=== PATIENT | female | born 1970 | race Two or more races ===

== ENCOUNTER 2016-07-23 10:42 | Inpatient (IN) | payer MEDICAID ==
[~2016-07-23] VITALS: Ht 170.2 cm; Wt 102.5 kg
[2016-07-23] MEDS ORDERED: SODIUM CHLORIDE 0.9% 1,000 ML IV ONE (11:18)
[2016-07-23] MEDS ORDERED: TRAZ100T15 PO (11:30)
[2016-07-23] MEDS ORDERED: LAMO100T5 PO (11:30)
[2016-07-23] MEDS ORDERED: SODIUM CHLORIDE 0.9% 1,000ML IVBOLUS ONE (11:30)
[2016-07-23] MEDS ORDERED: FLUO20CA19 PO (11:30)
[2016-07-23] MEDS ORDERED: ONDANSETRON 2MG/ML, 2ML IVPush ONE (11:30)
[2016-07-23 11:44] LABS: HEMOGLOBIN 12.7 g/dL (11.7-16.4)
[2016-07-23] MEDS ORDERED: HYDROmorphone 1 MG/ML, 1ML ONE ×2 (11:47→12:44)
[2016-07-23] MEDS ORDERED: ONDANSETRON 2MG/ML, 2ML ONE (11:47)
[2016-07-23 11:51] LABS: ASPARTATE AMINO TRANSFERASE 10 U/L (15-37); BLOOD UREA NITROGEN 19 mg/dL (7-18)
[2016-07-23] MEDS: HYDROmorphone 1 MG/ML, 1ML IVPush PRN ×2 (11:52→12:50)
[2016-07-23] MEDS ORDERED: OMNIPAQUE 350 MG/ML, 150 ML BOTTLE ONE (12:16)
[2016-07-23] MEDS ORDERED: SODIUM CHLORIDE FLUSH 10ML SYR IVF ONE (12:30)
[2016-07-23] MEDS ORDERED: ONDANSETRON 2MG/ML, 2ML IVP PRN (14:30)
[2016-07-23] MEDS ORDERED: ONDANSETRON ODT 4 MG PO PRN (14:30)
[2016-07-23] MEDS ORDERED: ACETAMINOPHEN 325 MG TABLET PO PRN (14:30)
[2016-07-23] MEDS: FLUOXETINE 20 MG CAPSULE PO SCH ×2 (16:00→21:00)
[2016-07-23 16:15] VITALS: BP 90/58
[2016-07-23] MEDS: ENOXAPARIN 40 MG/0.4 ML SQ SCH (16:19)
[2016-07-23] MEDS: POTASSIUM CHLORIDE 10 MEQ in SODIUM CHLORIDE 0.9% 1,000 ML IV SCH (16:19)
[2016-07-23] MEDS: MORPHINE SULFATE 4 MG/ML, 1ML IVPush PRN (16:20)
[2016-07-23 17:37] VITALS: BP 111/75
[2016-07-23] MEDS: HYDROcodone/APAP 5/325 TABLET PO PRN (18:17)
[2016-07-23 19:42] VITALS: BP 96/64
[2016-07-23] MEDS: TRAZODONE 100MG TABLET PO SCH (21:22)
[2016-07-23] MEDS ORDERED: MORPHINE SULFATE 4 MG/ML, 1ML IVPush ONE (21:30)
[2016-07-24 01:40] VITALS: BP 94/61
[2016-07-24] MEDS: MORPHINE SULFATE 4 MG/ML, 1ML IVPush PRN ×3 (04:30→20:32)
[2016-07-24 05:22] LABS: HEMOGLOBIN 11.6 g/dL (11.7-16.4)
[2016-07-24 05:29] LABS: BLOOD UREA NITROGEN 13 mg/dL (7-18)
[2016-07-24] MEDS: POTASSIUM CHLORIDE 10 MEQ in SODIUM CHLORIDE 0.9% 1,000 ML IV SCH ×2 (05:36→20:32)
[2016-07-24 07:29] VITALS: BP 101/67
[2016-07-24] MEDS: HYDROcodone/APAP 5/325 TABLET PO PRN (07:54)
[2016-07-24] MEDS: DICYCLOMINE 10 MG CAPSULE PO PRN ×2 (08:41→18:11)
[2016-07-24] MEDS: FLUOXETINE 20 MG CAPSULE PO SCH ×3 (09:36→21:00)
[2016-07-24] MEDS: LAMOTRIGINE 100 MG TABLET PO SCH (09:37)
[2016-07-24] MEDS ORDERED: LORazepam 2 MG/ML, 1ML IVPush ONE (10:00)
[2016-07-24] MEDS ORDERED: MAALOX/HYOSCYAMINE/LIDOCAINE 45 ML BOTTLE PO PRN (10:00)
[2016-07-24] MEDS: DOCUSATE 100 MG CAPSULE PO PRN (13:23)
[2016-07-24 14:16] VITALS: BP 96/61
[2016-07-24] MEDS: ENOXAPARIN 40 MG/0.4 ML SQ SCH (17:12)
[2016-07-24 20:04] VITALS: BP 113/76
[2016-07-24] MEDS: TRAZODONE 100MG TABLET PO SCH (20:32)
[2016-07-25 01:17] VITALS: BP 95/66
[2016-07-25 05:59] LABS: HEMOGLOBIN 11.5 g/dL (11.7-16.4)
[2016-07-25] MEDS: MORPHINE SULFATE 4 MG/ML, 1ML IVPush PRN (06:15)
[2016-07-25] MEDS: DOCUSATE 100 MG CAPSULE PO PRN (06:15)
[2016-07-25 07:47] VITALS: BP 108/71
[2016-07-25] MEDS: POTASSIUM CHLORIDE 10 MEQ in SODIUM CHLORIDE 0.9% 1,000 ML IV SCH (08:48)
[2016-07-25] MEDS: LAMOTRIGINE 100 MG TABLET PO SCH (09:11)
[2016-07-25] MEDS: FLUOXETINE 20 MG CAPSULE PO SCH ×2 (09:11→15:11)
[2016-07-25] MEDS: DICYCLOMINE 10 MG CAPSULE PO PRN ×2 (09:12→15:10)
[2016-07-25] MEDS ORDERED: DICY10CA53 PO (11:58)
[2016-07-25] MEDS: ENOXAPARIN 40 MG/0.4 ML SQ SCH (12:13)
[2016-07-25 13:02] VITALS: BP 95/60
== END 2016-07-25 17:25 | disposition home or self-care (01) | DRG 392 ==
LOC: ED 12:23 → EDIP 13:23 → 4EST 15:32
PROC: 0T9B70Z Drainage of Bladder with Drainage Device, Via Natural or Artificial Opening (ICD-10-PCS; principal; 2016-07-23)
DX: A08.4 Viral intestinal infection, unspecified (principal); Z90.710 Acquired absence of both cervix and uterus; F31.9 Bipolar disorder, unspecified; N18.2 Chronic kidney disease, stage 2 (mild); Z82.49 Family history of ischemic heart disease and other diseases of the circulatory system; Z83.3 Family history of diabetes mellitus; Z80.1 Family history of malignant neoplasm of trachea, bronchus and lung; Z88.0 Allergy status to penicillin; Z88.2 Allergy status to sulfonamides; Z79.899 Other long term (current) drug therapy
CPT/HCPCS: 36415; 74177; 80048; 80053; 81003; 83690; 84703; 85025; 93005; 96361; 96374; 96375; J1170; J1650; J2405; J3480; Q0162; Q9967; J2060; J7030

== ENCOUNTER 2016-09-28 21:56 | Emergency (ER) | payer MEDICAID ==
[~2016-09-28] VITALS: Ht 170.2 cm; Wt 98.8 kg
[~2016-09-28 21:56] MED LIST: DICY10CA53 PO; FLUO20CA19 PO; LAMO100T5 PO; TRAZ100T15 PO
[2016-09-28 22:02] VITALS: BP 149/95
[2016-09-29] MEDS ORDERED: ONDANSETRON ODT 4 MG ONE (00:54)
[2016-09-29] MEDS ORDERED: HYDROcodone/APAP 5/325 TABLET ONE (00:54)
== END 2016-09-29 10:08 | disposition home or self-care (01) ==
LOC: ED 09-29 02:45
DX: S16.1XXA Strain of muscle, fascia and tendon at neck level, initial encounter (principal); M50.30 Other cervical disc degeneration, unspecified cervical region; X58.XXXA Exposure to other specified factors, initial encounter; Y93.89 Activity, other specified; Y99.8 Other external cause status; Y92.89 Other specified places as the place of occurrence of the external cause
CPT/HCPCS: 72125

== ENCOUNTER 2016-10-16 08:57 | Emergency (ER) | payer MEDICAID ==
[~2016-10-16] VITALS: Ht 170.2 cm; Wt 97.0 kg
[2016-10-16] MEDS ORDERED: LISD50CA2 PO (09:22)
[2016-10-16] MEDS ORDERED: DIAZEPAM 5 MG TABLET ONE (09:55)
[2016-10-16] MEDS ORDERED: DIAZEPAM 5 MG TABLET PO ONE (10:00)
[2016-10-16] MEDS ORDERED: IBUPROFEN 200 MG TABLET PO ONE (10:00)
[2016-10-16] MEDS ORDERED: HYDROcodone/APAP 5/325 TABLET PO ONE (10:00)
[2016-10-16 10:47] VITALS: BP 118/92
== END 2016-10-16 10:50 | disposition home or self-care (01) ==
LOC: ED 09:12
DX: S16.1XXA Strain of muscle, fascia and tendon at neck level, initial encounter (principal); M32.9 Systemic lupus erythematosus, unspecified; X50.9XXA Other and unspecified overexertion or strenuous movements or postures, initial encounter; Y93.89 Activity, other specified; Y92.89 Other specified places as the place of occurrence of the external cause; Y99.8 Other external cause status
CPT/HCPCS: 99284

== ENCOUNTER 2016-12-16 22:08 | Emergency (ER) | payer OTHER ==
[~2016-12-16] VITALS: Ht 170.2 cm; Wt 99.4 kg
[~2016-12-16 22:08] MED LIST changes: +LISD50CA3 PO
[2016-12-16] MEDS ORDERED: SODIUM CHLORIDE 0.9% 1,000 ML IV ONE (22:44)
[2016-12-16] MEDS ORDERED: MORPHINE SULFATE 4 MG/ML, 1ML ONE (22:47)
[2016-12-16] MEDS ORDERED: ASPIRIN 81 MG TABLET CHEW ONE (22:48)
[2016-12-16] MEDS ORDERED: ONDANSETRON 2MG/ML, 2ML ONE (22:48)
[2016-12-16] MEDS ORDERED: MORPHINE SULFATE 4 MG/ML, 1ML IVPush PRN (23:00)
[2016-12-16] MEDS ORDERED: ONDANSETRON 2MG/ML, 2ML IVPush ONE (23:00)
[2016-12-16] MEDS ORDERED: SODIUM CHLORIDE FLUSH 10ML SYR IVF ONE (23:00)
[2016-12-16] MEDS ORDERED: ASPIRIN 81 MG TABLET CHEW PO ONE (23:00)
[2016-12-16 23:03] LABS: HEMATOCRIT 39.4 % (34.6-47.8); HEMOGLOBIN 13.1 g/dL (11.7-16.4); WHITE BLOOD COUNT 9.9 x10^3/uL (3.4-10)
[2016-12-16 23:13] LABS: ASPARTATE AMINO TRANSFERASE 9 U/L (15-37); BLOOD UREA NITROGEN 17 mg/dL (7-18)
[2016-12-17 00:11] VITALS: BP 109/67
== END 2016-12-17 00:16 | disposition home or self-care (01) ==
LOC: ED 22:41
DX: R07.89 Other chest pain (principal); R09.1 Pleurisy; Z88.0 Allergy status to penicillin; Z88.2 Allergy status to sulfonamides
CPT/HCPCS: 36415; 71020; 80053; 83880; 84484; 85025; 85379; 93005; 96361; 96374; 96375; 99285; J2405; J7030

== ENCOUNTER 2016-12-24 19:56 | Emergency (ER) | payer OTHER ==
[~2016-12-24] VITALS: Ht 170.2 cm; Wt 100.5 kg
[2016-12-24] MEDS ORDERED: KETOROLAC 30 MG/1 ML IM ONE (20:30)
[2016-12-24 20:32] LABS: HEMATOCRIT 40.1 % (34.6-47.8); HEMOGLOBIN 13.4 g/dL (11.7-16.4)
[2016-12-24 20:42] LABS: BLOOD UREA NITROGEN 18 mg/dL (7-18)
[2016-12-24] MEDS ORDERED: KETOROLAC 30 MG/1 ML ONE (20:46)
[2016-12-24 20:48] LABS: IS PT STATUS REG ER OR PRE ER? YES
[2016-12-24 21:26] VITALS: BP 141/84
== END 2016-12-24 21:41 | disposition home or self-care (01) ==
LOC: ED 20:17
DX: S20.212A Contusion of left front wall of thorax, initial encounter (principal); W01.0XXA Fall on same level from slipping, tripping and stumbling without subsequent striking against object, initial encounter; Y93.01 Activity, walking, marching and hiking; Y99.8 Other external cause status; Y92.488 Other paved roadways as the place of occurrence of the external cause
CPT/HCPCS: 36415; 71020; 80048; 84484; 85025; 93005; 96372; 99285; J1885

== ENCOUNTER 2017-01-11 13:44 | Emergency (ER) | payer OTHER ==
[~2017-01-11] VITALS: Ht 170.2 cm; Wt 102.5 kg
[2017-01-11] MEDS ORDERED: SODIUM CHLORIDE 0.9% 1,000 ML IV ONE (14:23)
[2017-01-11] MEDS ORDERED: ONDANSETRON 2MG/ML, 2ML IVPush ONE (14:30)
[2017-01-11] MEDS ORDERED: HYDROmorphone 1 MG/ML, 1ML IVPush PRN (14:30)
[2017-01-11] MEDS ORDERED: SODIUM CHLORIDE FLUSH 10ML SYR IVF ONE (14:30)
[2017-01-11 14:48] LABS: HEMATOCRIT 39.4 % (34.6-47.8); HEMOGLOBIN 13.3 g/dL (11.7-16.4); WHITE BLOOD COUNT 8.5 x10^3/uL (3.4-10)
[2017-01-11 14:53] LABS: BLOOD UREA NITROGEN 13 mg/dL (7-18)
[2017-01-11] MEDS ORDERED: HYDROmorphone 1 MG/ML, 1ML ONE (15:05)
[2017-01-11] MEDS ORDERED: ONDANSETRON 2MG/ML, 2ML ONE (15:05)
[2017-01-11] MEDS ORDERED: LIDOCAINE 1%, 20ML ONE (15:22)
[2017-01-11 15:57] LABS: GLUCOSE, CSF 47 mg/dL (40-80)
[2017-01-11 17:21] VITALS: BP 150/80
== END 2017-01-11 17:23 | disposition home or self-care (01) ==
LOC: ED 16:34
DX: J06.9 Acute upper respiratory infection, unspecified (principal); R51 Headache; Z88.0 Allergy status to penicillin; Z88.1 Allergy status to other antibiotic agents
CPT/HCPCS: 36415; 62270; 70450; 71020; 80048; 82040; 82945; 84157; 85025; 87070; 87205; 87252; 89051; 96361; 96374; 96375; 99285; J1170; J2405; J7030

== ENCOUNTER 2017-07-28 15:53 | Emergency (ER) | payer BC, OTHER ==
[~2017-07-28] VITALS: Ht 170.2 cm; Wt 118.9 kg
[2017-07-28 17:17] LABS: BASOPHILS # (AUTO) 0.04 x10^3/uL (0-0.1); BASOPHILS % (AUTO) 1 % (0-1); EOSINOPHILS # (AUTO) 0.24 x10^3/uL (0-0.4); EOSINOPHILS % (AUTO) 3 % (1-7); LYMPHOCYTES # (AUTO) 3.32 x10^3/uL (1-3.4); LYMPHOCYTES % (AUTO) 40 % (22-44); MD NO; MEAN CORPUSCULAR HEMOGLOBIN 28.2 pg (27.0-34.8); MEAN CORPUSCULAR HGB CONC 33.8 g/dL (32.4-35.8); MEAN CORPUSCULAR VOLUME 83.4 fL (80-100); MEAN PLATELET VOLUME 7.1 fL (7.4-10.4); MONOCYTES # (AUTO) 0.55 x10^3/uL (0.2-0.8); MONOCYTES % (AUTO) 7 % (2-9); NEUTROPHILS # (AUTO) 4.09 x10^3/uL (1.8-6.8); NEUTROPHILS % (AUTO) 50 % (42-75); PLATELET COUNT 531 x10^3/uL (130-400); RED BLOOD COUNT 4.09 x10^6/uL (3.82-5.3); RED CELL DISTRIBUTION WIDTH 14.6 % (9.6-15.2)
[2017-07-28 17:23] LABS: ALBUMIN 3.3 g/dL (3.4-5.0); ANION GAP 6 mmol/L (5-15); CALCIUM 8.6 mg/dL (8.5-10.1); CHLORIDE 110 mmol/L (98-107)
[2017-07-28 17:28] LABS: ALANINE AMINOTRANSFERASE 40 U/L (12-78); ALKALINE PHOSPHATASE 86 U/L (45-117); BILIRUBIN,TOTAL 0.5 mg/dL (0.2-1.0); CREATININE 0.84 mg/dL (0.55-1.02); TOTAL PROTEIN 6.9 g/dL (6.4-8.2)
[2017-07-28 18:31] LABS: MICROSCOPIC AUTO
[2017-07-28 18:34] LABS: CULTURE INDICATED? YES
[2017-07-28] MEDS ORDERED: KETOROLAC 30 MG/1 ML ONE (19:13)
[2017-07-28 19:17] VITALS: BP 116/65
[2017-07-28] MEDS ORDERED: FLUO20CA19 PO (19:19)
[2017-07-28] MEDS ORDERED: TRAZ100T15 PO (19:19)
[2017-07-28] MEDS ORDERED: HYDR200T72 PO (19:19)
[2017-07-28] MEDS ORDERED: LAMO150T3 PO (19:19)
[2017-07-28] MEDS ORDERED: KETOROLAC 30 MG/1 ML IM ONE (19:30)
== END 2017-07-28 17:13 | disposition home or self-care (01) ==
LOC: ED 17:07
DX: M25.512 Pain in left shoulder (principal); M19.90 Unspecified osteoarthritis, unspecified site; R10.13 Epigastric pain; M32.9 Systemic lupus erythematosus, unspecified
CPT/HCPCS: 36415; 73030; 74176; 76700; 80053; 81001; 83690; 85025; 87077; 87086; 87186; 96372; 99285; J1885

== ENCOUNTER 2017-11-02 20:09 | Emergency (ER) | payer BC ==
[~2017-11-02] VITALS: Ht 170.2 cm; Wt 119.5 kg
[~2017-11-02 20:09] MED LIST changes: +HYDR200T72 PO; +LAMO150T3 PO
[2017-11-02] MEDS ORDERED: IBUPROFEN 200 MG TABLET PO ONE (21:00)
[2017-11-02] MEDS ORDERED: ACETAMINOPHEN 650 MG/20.3 ML UDC PO ONE (21:00)
[2017-11-02] MEDS ORDERED: ACETAMINOPHEN 500 MG TABLET ONE (21:04)
[2017-11-02] MEDS ORDERED: IBUPROFEN 200 MG TABLET ONE (21:04)
[2017-11-02] MEDS ORDERED: ONDANSETRON ODT 4 MG ONE (21:05)
[2017-11-02 21:19] LABS: BASOPHILS # (AUTO) 0.07 x10^3/uL (0-0.1); BASOPHILS % (AUTO) 1 % (0-1); EOSINOPHILS # (AUTO) 0.14 x10^3/uL (0-0.4); EOSINOPHILS % (AUTO) 1 % (1-7); LYMPHOCYTES # (AUTO) 3.12 x10^3/uL (1-3.4); LYMPHOCYTES % (AUTO) 29 % (22-44); MD NO; MEAN CORPUSCULAR HGB CONC 33.6 g/dL (32.4-35.8); MEAN CORPUSCULAR VOLUME 80.2 fL (80-100); MEAN PLATELET VOLUME 7.5 fL (7.4-10.4); MONOCYTES # (AUTO) 0.65 x10^3/uL (0.2-0.8); MONOCYTES % (AUTO) 6 % (2-9); NEUTROPHILS # (AUTO) 6.66 x10^3/uL (1.8-6.8); NEUTROPHILS % (AUTO) 63 % (42-75); PLATELET COUNT 534 x10^3/uL (130-400); RED BLOOD COUNT 4.52 x10^6/uL (3.82-5.3); RED CELL DISTRIBUTION WIDTH 14.5 % (9.6-15.2)
[2017-11-02 21:27] LABS: ALBUMIN 3.4 g/dL (3.4-5.0); ANION GAP 7 mmol/L (5-15); CALCIUM 8.6 mg/dL (8.5-10.1); CHLORIDE 109 mmol/L (98-107)
[2017-11-02] MEDS ORDERED: ONDANSETRON ODT 4 MG PO ONE (21:30)
[2017-11-02 21:32] LABS: ALANINE AMINOTRANSFERASE 29 U/L (12-78); ALKALINE PHOSPHATASE 104 U/L (45-117); BILIRUBIN,TOTAL 0.5 mg/dL (0.2-1.0); CREATININE 0.81 mg/dL (0.55-1.02); TOTAL PROTEIN 7.1 g/dL (6.4-8.2); TROPONIN I < 0.015 ng/mL (0.000-0.045)
[2017-11-02 21:50] VITALS: BP 135/84
== END 2017-11-02 21:52 | disposition home or self-care (01) ==
LOC: ED 21:46
DX: R07.2 Precordial pain (principal)
CPT/HCPCS: 36415; 71046; 80053; 84484; 85025; 93005; 93971; 99285; Q0162

== ENCOUNTER 2017-11-07 13:50 | Emergency (ER) | payer BC ==
[~2017-11-07] VITALS: Ht 170.2 cm; Wt 118.8 kg
[~2017-11-07 13:50] MED LIST changes: +TRAZ-137 PO; -TRAZ100T15 PO
[2017-11-07 13:55] VITALS: BP 146/96
[2017-11-07] MEDS ORDERED: DIAZEPAM 5 MG TABLET PO ONE (14:30)
[2017-11-07] MEDS ORDERED: KETOROLAC 30 MG/1 ML IM ONE (14:30)
== END 2017-11-07 16:10 | disposition home or self-care (01) ==
LOC: ED 15:15
DX: S39.012A Strain of muscle, fascia and tendon of lower back, initial encounter (principal); X58.XXXA Exposure to other specified factors, initial encounter; Y93.89 Activity, other specified; Y92.89 Other specified places as the place of occurrence of the external cause; Y99.8 Other external cause status
CPT/HCPCS: 96372; 99283; J1885

== ENCOUNTER 2017-12-07 23:58 | Emergency (ER) | payer BC ==
[~2017-12-07] VITALS: Ht 170.2 cm; Wt 118.0 kg
[2017-12-08 00:01] VITALS: BP 141/84
== END 2017-12-08 00:58 | disposition home or self-care (01) ==
LOC: ED 12-08 00:16
DX: L03.113 Cellulitis of right upper limb (principal)
CPT/HCPCS: 99283

== ENCOUNTER 2018-01-13 00:33 | Emergency (ER) | payer BC ==
[~2018-01-13] VITALS: Ht 170.2 cm; Wt 118.6 kg
[2018-01-13 00:37] VITALS: BP 141/83
[2018-01-13] MEDS ORDERED: KETOROLAC 30 MG/1 ML ONE (00:57)
[2018-01-13] MEDS ORDERED: KETOROLAC 30 MG/1 ML IM ONE (01:00)
== END 2018-01-13 02:26 | disposition home or self-care (01) ==
LOC: ED 00:55
DX: S83.92XA Sprain of unspecified site of left knee, initial encounter (principal); M25.462 Effusion, left knee; X50.1XXA Overexertion from prolonged static or awkward postures, initial encounter; Y93.89 Activity, other specified; Y99.8 Other external cause status; Y92.69 Other specified industrial and construction area as the place of occurrence of the external cause
CPT/HCPCS: 29505; 73564; 96372; 99284; J1885

== ENCOUNTER 2018-03-26 18:20 | Emergency (ER) | payer OTHER ==
[~2018-03-26] VITALS: Ht 170.2 cm; Wt 120.7 kg
[2018-03-26 18:22] VITALS: BP 144/86
[2018-03-26] MEDS ORDERED: hydrOXyzine 50MG TABLET ONE (18:52)
[2018-03-26] MEDS ORDERED: FAMOTIDINE 20 MG TABLET ONE (18:52)
[2018-03-26] MEDS ORDERED: FAMOTIDINE 20 MG TABLET PO ONE (19:00)
== END 2018-03-26 19:43 | disposition home or self-care (01) ==
LOC: ED 19:30
DX: S80.862A Insect bite (nonvenomous), left lower leg, initial encounter (principal); S80.861A Insect bite (nonvenomous), right lower leg, initial encounter; S60.861A Insect bite (nonvenomous) of right wrist, initial encounter; S30.861A Insect bite (nonvenomous) of abdominal wall, initial encounter; G43.909 Migraine, unspecified, not intractable, without status migrainosus; Z90.710 Acquired absence of both cervix and uterus; Z98.890 Other specified postprocedural states; W57.XXXA Bitten or stung by nonvenomous insect and other nonvenomous arthropods, initial encounter; Y93.89 Activity, other specified; Y92.89 Other specified places as the place of occurrence of the external cause; Y99.8 Other external cause status
CPT/HCPCS: 99284; J7512; Q0177

== ENCOUNTER 2018-05-06 18:11 | Emergency (ER) | payer OTHER ==
[~2018-05-06] VITALS: Ht 170.2 cm; Wt 118.8 kg
[2018-05-06 18:25] VITALS: BP 143/86
[2018-05-06] MEDS ORDERED: KETOROLAC 30 MG/1 ML ONE (19:13)
[2018-05-06] MEDS ORDERED: METHOCARBAMOL 750 MG TABLET ONE (19:13)
[2018-05-06] MEDS ORDERED: KETOROLAC 30 MG/1 ML IM ONE (19:30)
[2018-05-06] MEDS ORDERED: METHOCARBAMOL 750 MG TABLET PO ONE (19:30)
== END 2018-05-06 20:14 | disposition home or self-care (01) ==
LOC: ED 19:36
DX: S39.012A Strain of muscle, fascia and tendon of lower back, initial encounter (principal); S29.012A Strain of muscle and tendon of back wall of thorax, initial encounter; M54.42 Lumbago with sciatica, left side; G43.909 Migraine, unspecified, not intractable, without status migrainosus; V49.09XA Driver injured in collision with other motor vehicles in nontraffic accident, initial encounter; Y93.89 Activity, other specified; Y92.89 Other specified places as the place of occurrence of the external cause; Y99.8 Other external cause status
CPT/HCPCS: 72072; 72110; 96372; 99283; J1885